=== PATIENT | female | born 1985 | race Caucasian/White ===

== ENCOUNTER 2020-11-16 12:00 | Outpatient (RCR) | payer OTHER, SELFPAY ==
--- NOTE | 2020-10-24 15:18 | PC.NURSE ---
case opened in treatment team
[2020-10-24 15:25] VITALS: BMI 27.9
--- NOTE | 2020-10-24 16:54 | P.HPPSP_ITS ---
HPI Chief Complaint: depression Sources of Information: patient interviewed, chart reviewed and crisis/core team assessment reviewed HPI Narrative: MS. Sarmiento is a 35 year-old woman with hx of MDD, alcohol abuse who was referred by her OP psychotherapist to PHP due to increase depression, anhedonia, anxious mood, hopeless/helpless since last June after her mother unexpectedly. Pt reports her mother was main support and confident. She reports she has been increasing alcohol use since then. She denies drinking daily or weekly but states that there have been at least 6 times when she was had too much alcohol to point of having a black out. She denies suicidal or homicidal ideation. She denies any plan or intent. She reports she has difficulty getting out of bed, and going to work, She reports calling out often. She has been on effexor for some years. She reports hx of anxiety and panic attacks started since she was 13 years-old and feels current medications most effective. However, she has been on higher dose of effexor but thinks it made her more irritable. We discussed adding abilify. Note pt on clonazepam and gabapentin prescribed by OP psychiatrist. Past Psychiatric History: Inpatient: one inpt at [facility] at age 19 for depression. OP: Dr. Irving and Byron Cheema ([place]) Suicide attempts: none Past trials: sertraline, paxil, wellbutrin, seroquel Medical Evaluation Reviewed: Yes [facility] Surgical History (Updated 10/24/20 @ 15:24 by Zoila Westbrook RN) History of appendectomy Family History: mother/father alcohol use Social History: lives with and 7 year-old daughter. 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. Substance History: Alcohol: since age 17, last use 1.5 week cocaine: from [age]. no current use. Pt denies opiates use, LSD, amphetamines Trauma History: none Diagnostics Vital Signs (24Hr): Body Mass Index 27.9 Meds/Allergies Allergies Allergies Allergy/AdvReac Type Severity Reaction Status Date / Time No Known Allergies Allergy Verified 10/24/20 08:48 Mental Status Exam Mental Status Exam Narrative: Appearance: casually groomed, fair hygiene, restless, tearful Behavior: cooperative Psychomotor: no agitation or retardation noted Speech: clear, normal rate/rhythm/volume, spontaneous TP: linear TC: no signs of psychosis, hopeless, depressed, no SI. Mood: depressed Affect: congruent, blunted SI: none HI: none VH/AH: none Delusions: none Insight/judgment: fair x 2. Memory/cog: alert, oriented x 3. grossly intact to conversational testing. Assessment & Plan Assessment & Plan (1) MDD (major depressive disorder), recurrent episode, moderate: Status: Acute Code(s): F33.1 - Major depressive disorder, recurrent, moderate Assessment and Plan: 1. continue effexor 150mg po daily. Continue gabapentin and clonazepam. We did discussed risks, benefits of controlled substances as she continues to work on substance use. 2. Add abilify 2 mg po qhs for mood/ boost effect of antidepressant. (2) Alcohol abuse: Status: Acute Code(s): F10.10 - Alcohol abuse, uncomplicated Certification I certify that partial hospital treatment is medically necessary due to the symptoms and problems resulting from the patient's mental illness and the failure to treat the patient at the partial hospital level of care would likely result in the patient requiring inpatient psychiatric care which could not be prevented at a less intensive level of care. Telehealth Telehealth Location of provider rendering services: practice address Location of patient: address on file Patient Identification confirmed using: Name, : Yes Telehealth method: video Patient verbally consented to treatment: Yes Patient verbally consented to billing insurance company: Yes Patient informed of any privacy concerns related to visit: Yes Time spent with patient (mins): 30
--- NOTE | 2020-10-25 08:23 | PC.ADMIT ---
Patient is a 35 year old female who was referred to the PHP program by her therapist d/t an increase in depression and anxiety sxs. Patient is also grieving the loss of her mother whom she lost unexpectedly in June 2020.. Patient stated her mother was her best friend. Patient stated she is attending [facility] as, Iv'e always had depression and anxiety but my mom suddenly in June and since I'm declining mentally very fast and it is affecting my life, every part . Patient presents with depressed mood anxious affect. Tearful at times when talking about her mother. Patient reports that her appetite fluctuates at times she will not eat the entire day however at night she will become hungry and eat too much. Reports weight gain of 25 lbs in 2 years. Also reports poor sleep. In addition, patient reports she has been sober for 7 years however since her mother passed she has been drinking 2 x a month and she drinks until she cant feel anything. Patient describes herself as a recovering addict and alcoholic. Recommended to patient that in addition to PHP she attend online substance use groups for more support. Medications reconciled with patient and patient's pharmacy. Reports taking medications as prescribed.
--- NOTE | 2020-10-26 16:07 | PC.NURSE ---
I attempted to leave a message with the clients therapist Oswald Cheema. The number that we have to call does not clearly identify Mr Hudson name. I left a message stating that I wanted to leave information about a client who started PHP but did not leave name or any info other than i was calling from [facility]. I requested that Peter call and leave me a number that is confidential and safe for client information.
--- NOTE | 2020-10-26 16:46 | PC.NURSE ---
I spoke with the client to review her tx plan. We discussed goals and aftercare needs. She has outpatient providers. She will explore support groups central for a grief group. We discussed discharge date as 11.08 or
--- NOTE | 2020-10-31 08:05 | PC.NURSE ---
Client called out she wont be in today. She states that she is too tired from working all weekend and she has to work tonight also. She will be in tomorrow
--- NOTE | 2020-11-01 15:48 | HO.PHPPROGNO ---
Subjective Subjective Date of Service: 11/01/20 Reason For Visit: depression Interim History: Pt reports feeling a bit better since Abilify was initiated. Appetite is variable, Denies SI, no plan, no intent- I just don't want to be here. Denies mikhail. Sleep there is no change-latency is intact however pt sleeps during the day and has had DA ~3 times per night for several years. Overall believes she is noticeably better. Discussed using Klonopin for anxiety mgt with significant efficacy, however when she uses it she thinks more about using alcohol and seems to crave more. Talked of the loss of her mom in June and increase in cravings. She has used Klonopin effectively for a few years and discussed with Zoila Westbrook RN this morning a possible Naltrexone trial. Reviewed Naltrexone profile with pt (Edelmira) and discussed trial with a goal to decrease cravings. Discussed interaction potential with Klonopin. She will trial this week. Also discussed concern with nicotine use and breathing issues. Reviewed smoking cessation. Medication Compliance: Yes Side effects from medications: Yes (?Klonopin increasing cravings) Attending Groups: Yes Review of Systems Review of Systems Yes all other systems are reviewed and are negative (denies) Psychiatric: Reports abnormal sleep pattern, Reports anxiety, Reports change in appetite, Reports depression and Reports suicidal ideation (denies SI but states she wishes she were not here) Mental Status Exam Mental Status Exam Patient Orientation: Person, Place, Time and Situation Level of Consciousness: Alert Patient Behavior: Appropriate and Talkative Mood Description: Anxious Affect Description: Constricted Patient Cognition Impaired: No Ability to Follow Directions: Good Speech Pattern: Spontaneous Speech Memory Description: Intact Hallucinations: None Delusions: Not Present Thought Process: Intact Thought Content: positive for Intact Depressive Symptoms: Increased Anxiety and Difficulty Sleeping Judgement: Good Diagnostics Vital Signs (24Hr): Body Mass Index 27.9 Assessment & Plan Assessment & Plan (1) MDD (major depressive disorder), recurrent episode, moderate: Status: Acute Code(s): F33.1 - Major depressive disorder, recurrent, moderate (2) Alcohol abuse: Status: Acute Code(s): F10.10 - Alcohol abuse, uncomplicated Assessment and Plan: -Naltrexone 50 mg HS trial. Certification I certify that partial hospital treatment is medically necessary due to the symptoms and problems resulting from the patient's mental illness and the failure to treat the patient at the partial hospital level of care would likely result in the patient requiring inpatient psychiatric care which could not be prevented at a less intensive level of care. Greater than 50% of the session was spent on counseling and/or coordination of care Discharge Plan Discharge Attending provider: Casa [facility] Medications: New aripiprazole [Abilify] 2 mg tablet 2 mg PO BEDTIME Qty: 14 RF: 0 naltrexone 50 mg tablet 50 mg PO DAILY Qty: 10 RF: 0 No Action clonazepam 0.5 mg Tablet 0.5 mg PO TID PRN (Reason: Anxiety) RF: 0 venlafaxine 150 mg Capsule,Extended Release 24hr 150 mg PO DAILY RF: 0 gabapentin 300 mg Capsule 300 mg PO TID RF: 0 Telehealth Telehealth Location of provider rendering services: practice address Location of patient: address on file Patient Identification confirmed using: Name, : Yes Telehealth method: voice only Patient verbally consented to treatment: Yes Patient verbally consented to billing insurance company: Yes Patient informed of any privacy concerns related to visit: Yes Time spent with patient (mins): 15
--- NOTE | 2020-11-10 10:54 | PC.NURSE ---
The client called and left a message that she overslept. I called her back and she explained that she is very tired because she worked last night and didn't hear her alarm. She is off tomorrow and will be back on Saturday. She is going to come for half days ( starting IOP) so she can be here every day next week.
--- NOTE | 2020-11-14 13:17 | PM.EVENT ---
Event Note Date of Service: 11/14/20 Event Note: Pt, currently in PHP program, had a scheduled medication review appt at 1pm which she did not attend via teleconference.
--- NOTE | 2020-11-15 13:18 | P.EN_ITS ---
Event Note Date of Service: 11/15/20 Event Note: Pt scheduled for [facility] today [facility] Pt did not attend this appointment.
--- NOTE | 2020-11-15 13:18 | PM.EVENT ---
Event Note Date of Service: 11/15/20 Event Note: Pt scheduled for PHP medication appointment today 1pm via telehealth. Pt did not attend this appointment.
--- NOTE | 2020-11-15 13:25 | PC.NURSE ---
I called and left a message with Lauren to call RE ? didn't attend 3rd group and remind of 1:00 appointment
--- NOTE | 2020-11-17 09:25 | PC.NURSE ---
Client not in this morning. I called and left message to call and reminded her she couldn't attend without calling if late.
--- NOTE | 2020-11-17 11:07 | PC.NURSE ---
Padmini spoke with Lauren and she reported that she didn't come in because her daughter was having difficulty with school. We discussed her progress here and she reports difficuly staying sober. We agreed that she will be discharged from [facility] and I will make a referral for her to [facility]. She will call her providers today to make appointments.
--- NOTE | 2020-11-17 11:11 | PC.NURSE ---
I called [facility] and made an appointment for an intake for their substance IOP program. The intake is for November 28 at 1pm with Radha. It will be a telehealth appointment and they will call Lauren at that time. I called and informed Lauren of the appointment.
--- NOTE | 2020-11-17 11:45 | PC.NURSE ---
I called and left a message with client's therapist Oswald Cheema re client dc from [facility] and referral made to [facility].
== END 2020-11-16 23:55 | disposition home or self-care (01) ==
LOC: HO.PHPA 12:00
PROVIDERS: Visit Provider Psychiatry & Neurology Psychiatry
DX: F33.1 Major depressive disorder, recurrent, moderate (principal); F10.10 Alcohol abuse, uncomplicated; Z79.899 Other long term (current) drug therapy
CPT/HCPCS: 90791; 90853

== ENCOUNTER 2021-08-23 17:44 | Emergency (ER) | payer OTHER, SELFPAY | END 2021-08-23 20:04 | disposition left against medical advice (07) | PROVIDERS: Emergency Provider Emergency Medicine | DX: R11.10 Vomiting, unspecified (principal); F10.10 Alcohol abuse, uncomplicated; F33.1 Major depressive disorder, recurrent, moderate ==

== ENCOUNTER 2022-02-12 08:45 | Outpatient (RCR) | payer OTHER, SELFPAY ==
[2022-01-24 12:20] VITALS: BMI 32.1
--- NOTE | 2022-01-24 13:33 | PC.ADMIT ---
Patient is a 36 year old female who was advised by her therapist to attend [facility] d/t increase in depression and anxiety. Patient reports passive SI however denied plan or intent to harm or kill herself. Patient reports more intense cravings for ETOH however reports she has been sober since last summer. Patient attended [facility] 10/2020 and was on Naltrexone at that time. Patient interested in the [facility] and wants staff to make an appointment. Per records patients mother two years ago and less than a year ago she left her in addition to having a miscarriage around that time. Patient is currently taking a leave of absence from work d/t symptoms and to work on her mental health. Patient reports stress eating and has gained 40 lbs within the last 6 months. Patient spending time in bed napping during the day and reports poor sleep at night waking up 3 x on average during the night. Patient is alert and oriented x4. calm and cooperative. Presented with depressed mood and affect. Medication reconciliation done with patient and patient's pharmacy. Patient reports she is taking her medications as prescribed. Patient did state she has not started new medication Sertraline as she wanted to talk to [facility] prescriber first. Reviewed with [facility] prescriber Irma Linton NP patient recent history of chest pain-not present currently. Patient stated she was told it could be GERD. Patient has a f/u appointment on Saturday01/29/22. Patient was taken off Cymbalta and is on Seroquel.
--- NOTE | 2022-01-24 15:11 | HO.PS.ADMBH ---
[facility] Date of Service: 01/24/22 Chief Complaint: major depressive d/o Sources of Information: patient interviewed, chart reviewed and crisis/core team assessment reviewed [facility] Guardianship: No Medical Problems Affecting Mental Status: No Narrative: Patient is a 36-year-old female, referred to [facility] by therapist. History of major depressive disorder, alcohol use disorder. Has been experiencing increased symptoms of depression, chronic anxiety, feeling overwhelmed, irritability, passive SI, thoughts of relapse. She states ?I am always in a constant state of panic. But at the same time I am so tired, depressed ?. Denies any intent or plan to complete a suicide, but states I just do not want to be alive anymore . Describes precipitating stressors as her mother passing away in June 2020 suddenly at age 59, and her last year. She states that her symptoms have been steadily worsening over the past 6 months. She does describe difficulty with impulse control, especially compulsive eating. She reports a weight gain of 40 lb within this past 6 months. She has also impulsively spent money. But she states this is sporadic, and will be followed with close financial monitoring afterwards. No other risk-taking type behaviors reported. 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 She has been working with a psychiatrist for the past 4 months, and her therapist for the past 2 months. First sought treatment with therapy at age 13, due to symptoms of depression. Was in detox 11 years ago. She describe frequent mood swings. When discussing symptoms of bipolar disorder, she states that she has spoken to providers about this in the past, but has not been diagnosed with bipolar disorder, due to never experiencing symptoms for days at a time, but rather ?hourly ?. She is looking forward to participating in groups while here, in order to help learn and practice coping skills. Also willing to trial medication changes. Past Psychiatric History: Inpatient: one inpt at [facility] at age 19 for depression. PHP: [facility] 10/2020. [facility]: 10/2020 OP: Dr. Cynthia Reyez [facility] (past 4 months), and Byron Cheema ([place]) Therapist: Mary Jo Younger [facility], [facility] (2 months). Suicide attempts: none Past trials: sertraline, paxil, wellbutrin, seroquel, Effexor, Cymbalta. Medical Evaluation Reviewed: Yes [facility] Medical History History of anemia History of chest pain Surgical History History of appendectomy Family History: mother/father alcohol use Social History: Raised by mother, has older stepbrother. Father when she was 2 years old. Met developmental milestones as expected. Graduated high school, attended 2 years of college. 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 Currently on leave from work. / x1 year. Has 8-year-old daughter. Substance History: Alcohol use disorder. Detox 11 years ago. Relapsed briefly summer. Currently sober. Trauma History: Describes sudden loss of mother 1 1/2 years ago as traumatic. Reports missing ?blocks of time from childhood. Diagnostics Vital Signs (24Hr): BMI result Body Mass Index 32.1 Meds/Allergies Meds Home Medications Medication Instructions Recorded Confirmed Type clonazepam 0.5 mg tablet 0.5 mg PO BID PRN 01/24/22 01/24/22 History quetiapine 100 mg tablet (Seroquel) 100 - 200 mg PO BEDTIME 01/24/22 01/24/22 History Allergies Allergies Allergy/AdvReac Type Severity Reaction Status Date / Time No Known Allergies Allergy Verified 10/24/20 08:48 Mental Status Exam Mental Status Exam Narrative: Well-developed, overweight female, in NAD. Passive SI. No perceptual disturbances noted. No evidence of intoxication/withdrawals noted. No abnormal movements noted. Alert, attentive and cooperative with interview. Patient Appearance: Appropriate Patient Orientation: Person, Place, Time and Situation Level of Consciousness: Appropriate Patient Behavior: Appropriate, Cooperative and Good Eye Contact Mood Description: Depressed, Anxious and Labile (Irritable, tearful at times during interview.) Affect Description: Depressed, Anxious and Labile Patient Cognition Impaired: No Ability to Follow Directions: Good Speech Pattern: Clear, Appropriate and Coherent Memory Description: Intact Hallucinations: None Delusions: Not Present Thought Process: Intact Thought Content: positive for Intact and positive for Suicidal Ideation (passive, no intent/plan) Depressive Symptoms: Increased Anxiety, Difficulty Sleeping, Changes in Appetite, Loss of Int. in Activity, Significant Weight Gain (40 pounds in past 6 months), Hopelessness, Isolating-Friends/Family, Feelings of Guilt, Increased Fatigue, Thoughts of /Suicide, Low Self Esteem, Loss of Energy and Difficulty Concentrating Judgement: Fair Telehealth Telehealth Location of provider rendering services: practice address Location of patient: address on file Patient Identification confirmed using: Name, : Yes Telehealth method: video Patient verbally consented to treatment: Yes Patient verbally consented to billing insurance company: Yes Patient informed of any privacy concerns related to visit: Yes Minutes spent on Phone/Video with Pt.: 45 Assessment & Plan Assessment & Plan (1) MDD (major depressive disorder), recurrent severe, without psychosis: Status: Acute Code(s): F33.2 - Major depressive disorder, recurrent severe without psychotic features Assessment and Plan: Patient presents with worsening symptoms of anxiety and depression over the past 6 months. Reports current medications are not working well. Was prescribed sertraline yesterday, did not pick it up. States this is because she took it in the past, and did not find it helpful. She would like medication that can also help with binge eating. We discussed trying fluoxetine. Was explained that it is an SSRI, similar to other medications she has taken in the past. She is willing at this time to try it. She states that she believes she has some type of underlying mood disorder, although she knows she does not meet criteria of bipolar disorder, as she has explored this with other providers in the past. She does experience mood lability, agitation, feelings of panic and rate age. She states that she becomes rageful over tiny things, and then will start crying, which causes severe anxiety. She is currently taking Seroquel 100 mg at bedtime. She states that this helps her fall asleep, but does not help her stay asleep during the night. She states that when she does get up she overeats. She says that it also makes her feel ?logey ?in the mornings. She states ?I am so tired, depressed. My moods are just off the chart ?. She then states that her body is exhausted, but that her mind will not stop going. We discussed several medication options. One was to trial the sertraline as prescribed by her outpatient provider. She is not interested in this at this time. Discussed trial of Lexapro or Prozac. She would like to try prozac at this time. We also discussed adding a mood stabilizer such as Lamictal, which may also help with depression. She states that she will read about this medication, and will consider. (2) Generalized anxiety disorder: Status: Acute Code(s): F41.1 - Generalized anxiety disorder Assessment and Plan: Currently taking Klonopin 0.5 b.i.d. p.r.n.. Tearful, states that this use to help her but it is not helping right now. We discussed adding a p.r.n. Seroquel, she would like to hold off on doing this, as she is fearful it will make her to tired or gain more weight. (3) Alcohol use disorder, severe, in early remission: Status: Acute Code(s): F10.21 - Alcohol dependence, in remission Assessment and Plan: Patient had been drinking last year, had stopped. Reports that she briefly drink last summer, but then realized it was a mistake. Has been sober since last summer. Discussed support networks, such as 12 step programs, other types of recovery programs. Denies any cravings or desire to drink at this time. Plan 1. Continue with current [facility] plan of care. 2. Discontinue sertraline. 3. Start fluoxetine 20 mg daily. 4. Follow-up as per protocol. Patient educated on: diagnosis, medication risk/benefits, substance abuse and therapeutic strategies Informed Consent: understands Reason for continued partial hosp. stay Substantial Risk for: harm to self, inability to function, rapid decompensation and med/psych decompensation Certification I certify that partial hospital treatment is medically necessary due to the symptoms and problems resulting from the patient's mental illness and the failure to treat the patient at the partial hospital level of care would likely result in the patient requiring inpatient psychiatric care which could not be prevented at a less intensive level of care.
--- NOTE | 2022-01-25 16:45 | PC.NURSE ---
Case opened in treatment team.
--- NOTE | 2022-01-26 16:17 | HO.PHPPROGNO ---
Subjective Subjective Date of Service: 01/26/22 Reason For Visit: major depressive d/o Medical Problems Affecting Mental Status: No Interim History: Describes mood as ?very anxious, I feel very scared, and I do not know why ?. Denies any thought of harm to self or others, reports that she feels safe. Started fluoxetine this morning. Medication Compliance: Yes Side effects from medications: No Attending Groups: Yes Review of Systems Acute medical concerns: No Medical Review of Systems: unchanged Review of Systems Review of Systems Yes all other systems are reviewed and are negative Constitutional: Reports no additional constitutional complaints Mental Status Exam Mental Status Exam Narrative: NAD. Fully attentive during encounter. Denies SI/HI. No perceptual disturbances observed or reported. Patient Appearance: Appropriate Patient Orientation: Person, Place, Time and Situation Level of Consciousness: Appropriate Patient Behavior: Appropriate, Cooperative and Good Eye Contact Mood Description: Depressed and Anxious Affect Description: Depressed and Anxious Patient Cognition Impaired: No Ability to Follow Directions: Good Speech Pattern: Clear, Appropriate and Coherent Memory Description: Intact Hallucinations: None Delusions: Not Present Thought Process: Intact Thought Content: positive for Intact Depressive Symptoms: Increased Anxiety, Difficulty Sleeping, Changes in Appetite, Loss of Int. in Activity, Significant Weight Gain (40 pounds in past 6 months), Isolating-Friends/Family, Feelings of Guilt, Increased Fatigue, Low Self Esteem, Loss of Energy and Difficulty Concentrating Judgement: Fair Diagnostics Vital Signs (24Hr): BMI result Body Mass Index 32.1 Assessment & Plan Assessment & Plan (1) MDD (major depressive disorder), recurrent severe, without psychosis: Status: Acute Code(s): F33.2 - Major depressive disorder, recurrent severe without psychotic features Assessment and Plan: Continues with dysphoric mood. Started fluoxetine this morning. States that continues with anxiety, which overwhelms her at times. Denies SI/HI, reports that she feels safe. Discussed medication Lamictal, as we had discussed during last encounter. She states that she has read about the medication and does not wish to started at this time. She states that she does not believe she has an underlying mood disorder such as bipolar, but that she really thinks it is more combination of anxiety and depression at this time. Describes an incident yesterday where she went to store and bought her daughter several dresses. She states that afterwards she felt ?an intense high for about half an hour, and then adjust dropped off ?. She says that she feels overwhelmed at times, with physical symptoms of anxiety. We discussed other medications. She is not interested in adding p.r.n. quetiapine, as it makes her feel too tired during the day. She took gabapentin in the past, but does not recall much about it. She states that she did not take it for anxiety or mood in any way. Discussed a trial of clonidine. Education provided regarding the medication, including risks and benefits, side effects. She stated that she is willing to try this medication at this time. (2) Generalized anxiety disorder: Status: Acute Code(s): F41.1 - Generalized anxiety disorder Assessment and Plan: Is hopeful that the fluoxetine will help with anxiety symptoms. She is aware that it takes weeks to to truly take effect. She is willing to trial clonidine in the interim, to see if it helps with the physical symptoms she experiences with anxiety. (3) Alcohol use disorder, severe, in early remission: Status: Acute Code(s): F10.21 - Alcohol dependence, in remission Assessment and Plan: Continues to remain abstinent from alcohol at this time. Plan 1. Continue with current [facility] plan of care. 2. Start clonidine 0.1 mg daily. 3. Continue with other medication as prescribed. 4. Follow-up as per protocol. Patient educated on: diagnosis, medication risk/benefits, substance abuse and therapeutic strategies Informed Consent: understands Certification I certify that partial hospital treatment is medically necessary due to the symptoms and problems resulting from the patient's mental illness and the failure to treat the patient at the partial hospital level of care would likely result in the patient requiring inpatient psychiatric care which could not be prevented at a less intensive level of care. I spent minutes with the patient and/or on the patient floor today, greater than?50% of which was spent counseling/coordinating care. Discharge Plan Discharge Attending provider: Boyd An Medications: New fluoxetine [Prozac] 20 mg capsule 20 mg PO DAILY 14 Days Qty: 14 0RF clonidine HCl 0.1 mg tablet 0.1 mg PO DAILY 7 Days Qty: 7 0RF Discontinued sertraline 25 mg Tablet 25 mg PO DAILY 0RF Label Comments: New medication, patient has not started, wants to talk to prescriber at [facility]. No Action clonazepam 0.5 mg Tablet 0.5 mg PO BID PRN (Reason: Anxiety) 0RF quetiapine [Seroquel] 100 mg Tablet 100 - 200 mg PO BEDTIME 0RF Telehealth Telehealth Location of provider rendering services: practice address Location of patient: address on file Patient Identification confirmed using: Name, : Yes Telehealth method: video Patient verbally consented to treatment: Yes Patient verbally consented to billing insurance company: Yes Patient informed of any privacy concerns related to visit: Yes Minutes spent on Phone/Video with Pt.: 15
--- NOTE | 2022-01-26 16:23 | PC.NURSE ---
I called pt and spoke to her. She reported feeling very overwhelmed and her tone was short and a bit guarded. She reported a sense of despair and we discused criteria and possible need for inpatient LOC. Pt is having SI but no plan or intent. She said she will call crisis if thoughts get more severe, if she wants to talk, or if she feels unsafe. She said I have no shame about going inpatient if I need to . She reported craving for ETOH with no intent to use and [id number] feeling confident that she wont. We reviewed treatment plan and spoke about aftercare but did not yet set a tentative end date, as pt seemed too overwhelmed. We agreed to revisit this on another day.
--- NOTE | 2022-01-29 12:44 | PC.NURSE ---
Pt called after the second group stating she is leaving groups for the day due to having an extreme stomach ache. She said she is safe emotionally.
--- NOTE | 2022-01-30 11:59 | PC.NURSE ---
Set up appointment for Lauren at [facility] for medication assisted treatment for ETOH cravings on 01/26/22 however patient stated she was unable to make that appointment thus I cancelled the appointment. Patient told me her availability. Scheduled patient on 02/06/22 however patient stated someone from the [facility] called her and discussed treatment however she decided to hold off for now as she is able to manage cravings and has been going to meetings.
--- NOTE | 2022-01-31 13:47 | HO.PHPPROGNO ---
Subjective Subjective Date of Service: 01/31/22 Reason For Visit: major depressive d/o Medical Problems Affecting Mental Status: No Interim History: Describes mood as I'm okay, kind of blah day . Continues with dysphoric mood, anxiety. Tolerating Prozac well, no side effects, but has not yet noticed any improvement regarding symptoms. No thoughts of harm to self or others, no safety concerns. Reports overeating with Seroquel, would like to change medications. Medication Compliance: Yes Side effects from medications: Yes (overeating with seroquel) Attending Groups: Yes Review of Systems Acute medical concerns: No Medical Review of Systems: unchanged Review of Systems Review of Systems Yes all other systems are reviewed and are negative Constitutional: Reports no additional constitutional complaints Mental Status Exam Mental Status Exam Narrative: NAD. Fully attentive during encounter. Denies SI/HI. No perceptual disturbances observed or reported. Patient Appearance: Appropriate Patient Orientation: Person, Place, Time and Situation Level of Consciousness: Appropriate Patient Behavior: Appropriate, Cooperative and Good Eye Contact Mood Description: Depressed and Anxious Affect Description: Depressed and Anxious Patient Cognition Impaired: No Ability to Follow Directions: Good Speech Pattern: Clear, Appropriate and Coherent Memory Description: Intact Hallucinations: None Delusions: Not Present Thought Process: Intact Thought Content: positive for Intact Depressive Symptoms: Increased Anxiety, Difficulty Sleeping, Changes in Appetite, Loss of Int. in Activity, Significant Weight Gain, Increased Fatigue, Low Self Esteem and Loss of Energy Judgement: Fair Diagnostics Vital Signs (24Hr): BMI result Body Mass Index 32.1 Assessment & Plan Assessment & Plan (1) MDD (major depressive disorder), recurrent severe, without psychosis: Status: Acute Code(s): F33.2 - Major depressive disorder, recurrent severe without psychotic features Assessment and Plan: Continues with dysphoric mood. No SI, no safety concerns. Tolerating Prozac well, has not yet noticed any effectiveness. We discussed medication, educated on expected time needed for medication to be effective. She stated she understood. She has been taking Seroquel at bedtime, her provider had informed her at works for sleep and mood stabilization. She reports that she is getting up in the middle of the night and eating, and wishes to stop this medication. We discussed adding Lamictal. Medication discussed in detail, including risks, benefits, side effects, etc.. She is willing to try the medication at this time. (2) Generalized anxiety disorder: Status: Acute Code(s): F41.1 - Generalized anxiety disorder Assessment and Plan: Patient continues with anxiety/panic. We discussed clonidine. She has not yet picked it up from pharmacy. We discussed adding it instead of once daily to twice daily p.r.n., as it can help at night and also can be used during day for episodes of severe anxiety/panic. Discussed risks and benefits,side effects, etc. she is willing to try this at this time. (3) Alcohol use disorder, severe, in early remission: Status: Acute Code(s): F10.21 - Alcohol dependence, in remission Assessment and Plan: Continues to abstain from alcohol, denies any cravings at this time. Plan 1. Continue with current [facility] plan of care. 2. Discontinue Seroquel. 3. Start clonidine 0.1 mg b.i.d. p.r.n. for anxiety, panic. 4. Start lamotrigine 25 mg x 14 days, then increase dose to 50 mg x 14 days., with plan to start 100 mg in 28 days. Patient educated on: diagnosis, medication risk/benefits, substance abuse and therapeutic strategies Informed Consent: understands Reason for contiued partial hosp. stay Substantial Risk for: inability to function, rapid decompensation and med/psych decompensation Certification I certify that partial hospital treatment is medically necessary due to the symptoms and problems resulting from the patient's mental illness and the failure to treat the patient at the partial hospital level of care would likely result in the patient requiring inpatient psychiatric care which could not be prevented at a less intensive level of care. I spent minutes with the patient and/or on the patient floor today, greater than?50% of which was spent counseling/coordinating care. Discharge Plan Discharge Attending provider: Boyd An Medications: New fluoxetine [Prozac] 20 mg capsule 20 mg PO DAILY 14 Days Qty: 14 0RF clonidine HCl 0.1 mg tablet 0.1 mg PO BID PRN (Reason: anxiety, panic) 7 Days Qty: 14 0RF lamotrigine [Lamictal] 25 mg tablet See Rx Instructions .ROUTE .COMPLEX 28 Days Qty: 42 0RF Rx Instructions: Take one tab (25mg) for 14 days, then take 2 tabs (50mg) for 14 days. Discontinued quetiapine [Seroquel] 100 mg Tablet 100 - 200 mg PO BEDTIME sertraline 25 mg Tablet 25 mg PO DAILY Label Comments: New medication, patient has not started, wants to talk to prescriber at [facility]. No Action clonazepam 0.5 mg Tablet 0.5 mg PO BID PRN (Reason: Anxiety) Telehealth Telehealth Location of provider rendering services: practice address Location of patient: address on file Patient Identification confirmed using: Name, : Yes Telehealth method: video Patient verbally consented to treatment: Yes Patient verbally consented to billing insurance company: Yes Patient informed of any privacy concerns related to visit: Yes Minutes spent on Phone/Video with Pt.: 15
--- NOTE | 2022-01-31 16:21 | PC.NURSE ---
I called and LM for pt. Asked her to pld call re: schedule, etc.
--- NOTE | 2022-02-05 14:38 | PC.NURSE ---
Patient called and stated the palms of her hands are itchy and asked if it was from the Lamictal. Patient stated no rash or blisters in the area. Reviewed with PHP prescriber Priscilla Hernandez NP who advise patient to try it for a few more days and if she sees a rash or blisters to stop the medication. I advised the patient of the aforementioned information.
--- NOTE | 2022-02-06 15:50 | HO.PHPPROGNO ---
Subjective Subjective Date of Service: 02/06/22 Reason For Visit: major depressive d/o Medical Problems Affecting Mental Status: No Interim History: Describes mood as ?not great?. Experiencing increased anxiety. Passive SI, no intent/plan. Medication Compliance: Yes Side effects from medications: Yes (Has had itchy hands, not sure if it is related to Lamictal. Relieved with ) Attending Groups: Yes Review of Systems Acute medical concerns: No Medical Review of Systems: unchanged Review of Systems Skin/Breast: Reports pruritus (Describes itchy palms of hands, relieved with OTC Benadryl) Mental Status Exam Mental Status Exam Narrative: NAD. Fully attentive during encounter. Passive SI, no intent or plan. No HI/AH/VH. Patient Appearance: Appropriate Patient Orientation: Person, Place, Time and Situation Level of Consciousness: Appropriate Patient Behavior: Appropriate, Cooperative and Good Eye Contact Mood Description: Depressed and Anxious Affect Description: Depressed and Anxious Patient Cognition Impaired: No Ability to Follow Directions: Good Speech Pattern: Clear, Appropriate and Coherent Memory Description: Intact Hallucinations: None Delusions: Not Present Thought Process: Intact Thought Content: positive for Intact and positive for Suicidal Ideation (Passive, no intent or plan.) Depressive Symptoms: Increased Anxiety, Changes in Appetite, Loss of Int. in Activity, Increased Fatigue and Thoughts of /Suicide Judgement: Fair Diagnostics Vital Signs (24Hr): BMI result Body Mass Index 32.1 Assessment & Plan Assessment & Plan (1) MDD (major depressive disorder), recurrent severe, without psychosis: Status: Acute Code(s): F33.2 - Major depressive disorder, recurrent severe without psychotic features Assessment and Plan: Reports passive SI, increased anxiety and depression. She states that she has no intent or plan to harm herself in any way, and that she feels safe. She was agreeable to calling crisis if this changes in any way. Reports anxiety as a sense of impending doom, with fighter flight mode, states it is getting worse. States she is afraid to leave her house. Reviewed current medication including fluoxetine, possibly be activating. She states she does not believe is is side effects from the fluoxetine, as she has felt this way prior to taking the medication. Reports the clonidine is helpful regarding going to sleep, but that it is too sedating during daytime. Has had itchy palms of hands since starting Lamictal, reports using OTC Benadryl with positive affect. We reviewed symptoms such as rash. She does not have a rash anywhere visible. She was instructed to stop taking the Lamictal if the itchiness continues, or rash develops. We discussed various medication options. She is agreeable to a short-term increase in Klonopin from 0.5 b.i.d. p.r.n. to 0.5 t.i.d. p.r.n., while awaiting effects of fluoxetine. She plans to continue fluoxetine as prescribed. We discussed adding BuSpar, she is agreeable to this. (2) Generalized anxiety disorder: Status: Acute Code(s): F41.1 - Generalized anxiety disorder (3) Alcohol use disorder, severe, in early remission: Status: Acute Code(s): F10.21 - Alcohol dependence, in remission Assessment and Plan: Remains in remission, no concerns at this time. Plan 1. Continue with current [facility] plan of care. 2. Start BuSpar 15 mg b.i.d.. 3. Increase Klonopin to 0.5 mg t.i.d. p.r.n. for anxiety. 4. Follow-up as per protocol. Patient educated on: diagnosis, medication risk/benefits, substance abuse and therapeutic strategies Informed Consent: understands Reason for contiued partial hosp. stay Substantial Risk for: harm to self, inability to function, rapid decompensation and med/psych decompensation Certification I certify that partial hospital treatment is medically necessary due to the symptoms and problems resulting from the patient's mental illness and the failure to treat the patient at the partial hospital level of care would likely result in the patient requiring inpatient psychiatric care which could not be prevented at a less intensive level of care. I spent minutes with the patient and/or on the patient floor today, greater than?50% of which was spent counseling/coordinating care. Discharge Plan Discharge Attending provider: Boyd An Medications: New clonidine HCl 0.1 mg tablet 0.1 mg PO BID PRN (Reason: anxiety, panic) 7 Days Qty: 14 0RF lamotrigine [Lamictal] 25 mg tablet See Rx Instructions .ROUTE .COMPLEX 28 Days Qty: 42 0RF Rx Instructions: Take one tab (25mg) for 14 days, then take 2 tabs (50mg) for 14 days. fluoxetine 20 mg tablet 20 mg PO DAILY 30 Days Qty: 30 0RF buspirone 15 mg tablet 15 mg PO BID 30 Days Qty: 60 0RF clonazepam 0.5 mg tablet 0.5 mg PO TID PRN (Reason: anxiety) Qty: 90 0RF Discontinued clonazepam 0.5 mg Tablet 0.5 mg PO BID PRN (Reason: Anxiety) quetiapine [Seroquel] 100 mg Tablet 100 - 200 mg PO BEDTIME sertraline 25 mg Tablet 25 mg PO DAILY Label Comments: New medication, patient has not started, wants to talk to prescriber at [facility]. Telehealth Telehealth Location of provider rendering services: practice address Location of patient: address on file Patient Identification confirmed using: Name, : Yes Telehealth method: video Patient verbally consented to treatment: Yes Patient verbally consented to billing insurance company: Yes Patient informed of any privacy concerns related to visit: Yes Minutes spent on Phone/Video with Pt.: 15
--- NOTE | 2022-02-06 15:58 | PC.NURSE ---
Pt called and I spoke with her. She asked me for a letter for her employer stating she is in treatment and I got her permission for a release of information for this. I then completed and emailed this letter as she requested.
--- NOTE | 2022-02-09 14:20 | PC.NURSE ---
I called and left a message for pt after she was struggling in groups, expressing passive SI and hopelessness. I asked her to pls call and reinforced that we can extend treatment stay if she will agree to do so.
--- NOTE | 2022-02-12 14:42 | P.PNPSP_ITS ---
Subjective Subjective Date of Service: 02/12/22 Reason For Visit: major depressive d/o Medical Problems Affecting Mental Status: No Interim History: Continues with depressed mood, although noticing some improvement. No SI/HI, no safety concerns. Medication Compliance: Yes Side effects from medications: No Attending Groups: Yes Review of Systems Acute medical concerns: No Medical Review of Systems: unchanged Review of Systems Review of Systems Yes all other systems are reviewed and are negative Constitutional: Reports no additional constitutional complaints Mental Status Exam Mental Status Exam Narrative: NAD. Fully attentive during encounter. No SI/HI, no safety concerns. Patient Appearance: Appropriate Patient Orientation: Person, Place, Time and Situation Level of Consciousness: Appropriate Patient Behavior: Appropriate, Cooperative and Good Eye Contact Mood Description: Depressed (less depressed, but still present. ) and Anxious Affect Description: Appropriate Patient Cognition Impaired: No Ability to Follow Directions: Good Speech Pattern: Clear, Appropriate and Coherent Memory Description: Intact Hallucinations: None Delusions: Not Present Thought Process: Intact Thought Content: positive for Intact Depressive Symptoms: Increased Anxiety, Changes in Appetite and Thoughts of /Suicide Judgement: Good Diagnostics Vital Signs (24Hr): BMI result Body Mass Index 32.1 Assessment & Plan Assessment & Plan (1) MDD (major depressive disorder), recurrent severe, without psychosis: Status: Acute Code(s): F33.2 - Major depressive disorder, recurrent severe without psychotic features Assessment and Plan: Continues with some depression and anxiety, although reports noticing some improvement. Discussed medications in detail. Reports the clonidine has been helping her sleep. Continues with Lamictal, no rash present. Plan is after 2 weeks of Lamictal at 50 mg, to proceed to Lamictal 100 mg daily. Continues with fluoxetine 20 mg at this time. She did voice some frustration over waiting for a few weeks for medications to take full effect, but she does report some improvement overall. Returning to work Saturday. No SI/HI, no safety concerns at this time. (2) Generalized anxiety disorder: Status: Acute Code(s): F41.1 - Generalized anxiety disorder (3) Alcohol use disorder, severe, in early remission: Status: Acute Code(s): F10.21 - Alcohol dependence, in remission Assessment and Plan: Continues to remain abstinent. We discussed local 12 step meetings. She has found a woman's group that she has found helpful close to her home. Plan 1. Continue with current medications as prescribed. Thirty day script for Lamictal 100 mg sent, clonidine 0.1 b.i.d. p.r.n., 30 day supply sent. 2. Patient appears stable for discharge from [facility] at this time. Plan is to follow up with outpatient providers going forward. Patient educated on: diagnosis, medication risk/benefits, substance abuse and therapeutic strategies Informed Consent: understands Reason for contiued partial hosp. stay Substantial Risk for: stable for discharge Certification I certify that partial hospital treatment is medically necessary due to the symptoms and problems resulting from the patient's mental illness and the failure to treat the patient at the partial hospital level of care would likely result in the patient requiring inpatient psychiatric care which could not be prevented at a less intensive level of care. I spent minutes with the patient and/or on the patient floor today, greater than?50% of which was spent counseling/coordinating care. Discharge Plan Discharge Attending provider: Boyd An Medications: New lamotrigine [Lamictal] 25 mg tablet See Rx Instructions .ROUTE .COMPLEX 28 Days Qty: 42 0RF Rx Instructions: Take one tab (25mg) for 14 days, then take 2 tabs (50mg) for 14 days. buspirone 15 mg tablet 15 mg PO BID 30 Days Qty: 60 0RF clonazepam 0.5 mg tablet 0.5 mg PO TID PRN (Reason: anxiety) Qty: 90 0RF fluoxetine 20 mg capsule 20 mg PO DAILY 30 Days Qty: 30 0RF lamotrigine [Lamictal] 100 mg tablet 100 mg PO DAILY Qty: 30 0RF clonidine HCl 0.1 mg tablet 0.1 mg PO BID PRN (Reason: anxiety) 30 Days Qty: 60 0RF Discontinued clonazepam 0.5 mg Tablet 0.5 mg PO BID PRN (Reason: Anxiety) quetiapine [Seroquel] 100 mg Tablet 100 - 200 mg PO BEDTIME sertraline 25 mg Tablet 25 mg PO DAILY Label Comments: New medication, patient has not started, wants to talk to prescriber at [facility]. Stand Alone Forms: Patient Portal Discharge page Telehealth Telehealth Location of provider rendering services: practice address Location of patient: address on file Patient Identification confirmed using: Name, : Yes Telehealth method: video Patient verbally consented to billing insurance company: Yes Patient informed of any privacy concerns related to visit: Yes Minutes spent on Phone/Video with Pt.: 15
--- NOTE | 2022-02-12 16:32 | PC.NURSE ---
Patient discharged from [facility] today 02/12/22. Discharge routine. Patient reports she is ready for discharge, denies SI and HI. Discharge medications reviewed, patient states good undurstanding of use and schedule. Patient has completed 13 days at [facility]. Discharge medication list faxed to out patient providers.
--- NOTE | 2022-02-12 16:39 | PC.NURSE ---
I called and LM for pt's therapist, Mary Jo Younger, SAMMI at [facility]. I informed her of pt's discharge from [facility] today.
== END 2022-02-12 23:59 | disposition home or self-care (01) ==
LOC: HO.PHPA 08:45
PROVIDERS: Visit Provider Psychiatry & Neurology Psychiatry
DX: F33.2 Major depressive disorder, recurrent severe without psychotic features (principal); F41.1 Generalized anxiety disorder; F10.21 Alcohol dependence, in remission; Z79.899 Other long term (current) drug therapy
CPT/HCPCS: 90853

== ENCOUNTER 2022-07-25 02:50 | Emergency (ER) | payer OTHER, SELFPAY ==
[2022-07-25] VITALS (11 sets, daily range): BP systolic 86–141; BP diastolic 47–83; PULSE 54–78; RESP 12–17; TEMP 36.8; O2SAT 97–99
--- NOTE | 2022-07-25 | ECG_ITS ---
Test Reason : OVERDOSE Blood Pressure : / mmHG Vent. Rate : 087 BPM Atrial Rate : 087 BPM P-R Int : 148 ms QRS Dur : 058 ms QT Int : 346 ms P-R-T Axes : 053 046 053 degrees QTc Int : 416 ms Normal sinus rhythm Normal ECG No previous ECGs available Referred By: Brian Hickman Electronically Signed By:Dariusz Joel
--- NOTE | 2022-07-25 04:27 | PC.NURSE ---
Administered midodrine 10 mg PO per written order on downtime.
--- OUTSIDE RECORDS SUMMARY | 2022-07-25 06:13 | XMS_ITS | Continuity of Care Document ---
:1985 Author Organization [facility] Address [address] [place] [address]- Care Team Providers Name Role Phone Aniceto RAMOS, Joy Box Primary Care Physician [place] [facility] [place] 12/23/21 [facility] [address], [place] [address] Encounter Diagnosis Acute otitis media, bilateral (Discharge Diagnosis) - 12/16/21 Attending Physician: Hans Meyers DO Allergies, Adverse Reactions, Alerts No Known Allergies Medications buPROPion 100 mg/12 hours (SR) oral tablet, extended release 1 tablet = 100 mg, By Mouth, Daily, # 60 tablet, 3 Refills, Maintenance, 02/28/16 8:48:34, ER Tablet Start Date: 02/28/16 Status: OrderedclonazePAM 0.5 mg oral tablet 1 tablet = 0.5 mg, By Mouth, 2 times a day, Take only as needed NO FURTHER REFILLS UNTIL OFFICE VISTLAST WARNING, # 30 tablet, 0 Refills, Maintenance, 01/10/17 13:30:19 Start Date: 01/10/17 Stop Date: 01/25/17 Status: OrderedcloNIDine 0.1 mg oral tablet TAKE 1/2- 1 TABLET 3 TIMES DAILY. NEEDED FOR ANXIETY., 11/17/13 0:00:00 Start Date: 11/17/13 Status: OrderedDuloxetine By Mouth, 0 Refills, Maintenance Start Date: 01/09/13 Status: Orderedgabapentin 300 mg oral capsule TAKE 1 CAPSULE THREE TIMES DAILY., 10/06/14 0:00:00 Start Date: 10/06/14 Status: Orderedgabapentin 400 mg oral capsule 400 mg, 1, capsule, By Mouth, 3 times a day, NO FURTHER REFILLS UNTIL OFFICE VISIT, # 90 capsule, Refills 0, Tot. Refills 0, Maintenance, 02/04/17 10:31:00, Route to Pharmacy Electronically, [id number], [facility]/pharmacy #[id number] Start Date: 02/04/17 Stop Date: 03/06/17 Status: OrderedOrtho Micronor 0.35 mg oral tablet 1 tablet = 0.35 mg, By Mouth, Daily, # 28 tablet, 3 Refills, Maintenance, Tablet Start Date: 03/21/13 Status: Orderedoxycodone 5 mg oral tablet 1 tablet = 5 mg, By Mouth, Every 6 hours, PRN for pain, # 24 tablet, 0 Refills, Maintenance, Tablet Start Date: 03/21/13 Status: OrderedPrenatal Multivitamins By Mouth, Daily, 0 Refills, Maintenance Start Date: 01/09/13 Status: Orderedsertraline 100 mg oral tablet 2 tablet = 200 mg, By Mouth, Daily, THIS IS THE MAX DOSE THAT WILL BE PRESCRIBDED BY DR HARDY, NO FURTHER REFILL UNITL OFFICE VIST LAST WARNING, # 30 tablet, 1 Refills, Maintenance, 03/08/17 16:00:00, Tablet Start Date: 03/08/17 Stop Date: 04/07/17 Status: Ordered Problem List Condition Effective Dates Status Health Status Informant Acute pharyngitis(Confirmed) Active Alcohol abuse(Confirmed) Active Anxiety(Confirmed) Active Esophageal reflux(Confirmed) Active Major depression(Confirmed) Active OCD (obsessive compulsive Active disorder)(Confirmed) Panic disorder with Active agoraphobia(Confirmed) (Confirmed) Active Short cervix affecting Active (Confirmed) Social phobia(Confirmed) Active Threatened Premature Labor(Confirmed) Active Diagnosis Diagnosis Type Effective Dates Health Status Clinical In formant Service Acute otitis Discharge 12/16/21 media, bilateral Diagnosis Vital Signs Most recent to oldest [Reference Range]: 1 Height 152.40 cm (12/16/21 12:32 PM) Oxygen Saturation [94-100 %] 100 % (12/16/21 12:32 PM) Pulse Rate [55-90 bpm] 68 bpm (12/16/21 12:32 PM) Blood Pressure [90-138/55-84 mm Hg] 90/65 mm Hg (12/16/21 12:32 PM) Respiratory Rate [16-30 br/min] 18 br/min (12/16/21 12:32 PM) Temperature [96.8-100.4 DegF] 98.0 DegF (12/16/21 12:32 PM) Mode of Delivery (Oxygen) Room air (12/16/21 12:32 PM) Blood pressure sites Arm, right (12/16/21 12:32 PM) Temperature Route Temporal (12/16/21 12:32 PM) Social History Social History Type Response Smoking Status Current every day smoker; To bacco user in household: No entered on: 05/18/15 Sex
--- OUTSIDE RECORDS SUMMARY | 2022-07-25 06:13 | XMS_ITS | Continuity of Care Document ---
:1985 Author Organization [facility] Address [address] [place] [address]- Care Team Providers Name Role Phone Not on Staff, PCP Primary Care Physician Unavailable Encounter [facility] [place] Date(s): 12/08/21 - 12/08/[address] [address]- Discharge Disposition: A-D/C Home Attending Physician: Margarito Alfaro MD Admitting Physician: Margarito Alfaro MD Referring Physician: Not on Staff, Referring MD Allergies, Adverse Reactions, Alerts No Known Allergies [...] Maintenance, 02/04/17 10:31:00, Route to Pharmacy Electronically, [id number], [facility]/pharmacy #[id number] Start Date: 02/04/17 Stop Date: 03/06/17 [...] Social phobia(Confirmed) Active Threatened Premature Labor(Confirmed) Active Results Radiology Reports Exam Date Time Procedure Performing Provider Status 12/08/21 4:45 PM Chest 2 Views Frontal and Lat Goldie Santana; [place] (Verified) Notes:(Chest 2 Views Frontal and Lat) Reason For Exam: Chest Pain;Other:RESULT: Chest 2 Views Frontal and Lat Chest 2 Views Frontal and Lat HX OF PRESENT ILLNESS: since yesterday has had 3 episodes of severe midsternal cp, feels like a cylinder going straight through to back with sob, dizziness, cold sweats, sob. Episodes last 15 mins and resolve spontaneously. Started Cymbalta 3 days ago; Reason: Chest Pain COMPARISON: 07/01/2008 FINDINGS: LINES AND TUBES: None. LUNGS AND PLEURA: Clear lungs. Normal pulmonary vascularity. No pleural effusion. No pneumothorax. HEART, MEDIASTINUM AND MAGDA: Heart is normal in size. Normal mediastinal and hilar contour. BONES AND SOFT TISSUES: No acute abnormality. IMPRESSION: No evidence of acute abnormality. WSN: [id number] Ordering Physician: Leoncio Dillon Dictated By: Charles Sage MD Dictated Date/Time: 12/08/21 4:47 pm Reviewed By: Charles Sage MD Signed By: Charles Sage MD Signed Date/Time: 12/08/21 4:47 pm Transcribed By: LOVE Transcribed Date/Time: 12/08/21 4:46 pm Vital Signs Most recent to oldest 1 2 3 [Reference Range]: Oxygen Saturation [94-100 %] 100 % 99 % 100 % (12/08/21 10:30 PM) (12/08/21 8:42 PM) (12/08/21 6: 38 PM) Pulse Rate [55-90 bpm] 84 bpm 90 bpm 79 bpm (12/08/21 10:30 PM) (12/08/21 8:42 PM) (12/08/21 6: 38 PM) Blood Pressure [90-138/55-84 120/79 mm Hg 123/82 mm Hg 120 /83 mm Hg mm Hg] (12/08/21 10:30 PM) (12/08/21 8:42 PM) (12/08/21 6: 38 PM) Respiratory Rate [16-30 23 br/min 17 br/min 16 br/mi n br/min] (12/08/21 10:30 PM) (12/08/21 8:42 PM) (12/08/21 6: 38 PM) Temperature [96.8-100.4 DegF] 98.3 DegF 98.7 DegF (12/08/21 6:38 PM) (12/08/21 4:35 PM) Mode of Delivery (Oxygen) Room air Room air Room a ir (12/08/21 10:30 PM) (12/08/21 8:42 PM) (12/08/21 6: 38 PM) Blood pressure sites Arm, left Arm, left Arm, right (12/08/21 10:30 PM) (12/08/21 8:42 PM) (12/08/21 6: 38 PM) Temperature Route Oral Oral (12/08/21 6:38 PM) (12/08/21 4:35 PM) Social History Social History Type Response Smoking Status Current every day smoker; To bacco user in household: No entered on: 05/18/15 Sex
--- OUTSIDE RECORDS SUMMARY | 2022-07-25 06:13 | XMS_ITS | Continuity of Care Document ---
:1985 Author Organization [facility] Address [address] [place] [address]- Care Team Providers Name Role Phone Aniceto RAMOS, Joy Box Primary Care Physician [place] [facility] [place] 12/16/21 - 01/15/22 [facility] [address] [place] [address]- Attending Physician: Dao Raza Admitting Physician: Dao Raza Referring Physician: AdmtrDao Allergies, Adverse Reactions, Alerts No Known Allergies Medications buPROPion 100 mg/12 hours (SR) oral tablet, extended release 1 tablet = 100 mg, By Mouth, Daily, # 60 tablet, 3 Refills, Maintenance, 02/28/16 8:48:34, ER Tablet Start Date: 02/28/16 Status: Orderedcefdinir 300 mg oral capsule 1 capsule = 300 mg, By Mouth, Every 12 hours, for 10 days, # 20 capsule, 0 Refills, Acute 01/19/22 11:37:00 EDT, 01/09/22 11:37:00 EDT, Capsule, [facility]/pharmacy #[id number], Partial fill upon patient request ifthe prescription is for a schedule II opioid drug... Start Date: 01/09/22 Stop Date: 01/19/22 Status: OrderedclonazePAM 0.5 mg oral tablet 1 [...] ANXIETY., 11/17/13 0:00:00 Start Date: 11/17/13 Status: OrderedDiflucan 150 mg oral tablet See Instructions, 1 tablet By Mouth as needed for yeast infection, then repeat in 5 days if symptomspersist, # 2 tablet, 0 Refills, Maintenance, 01/09/22 11:37:00 EDT, Tablet, [facility]/pharmacy #[id number], Partial fill upon patient request if the prescription... Start Date: 01/09/22 Status: OrderedDuloxetine By Mouth, 0 Refills, Maintenance [...] Maintenance, 02/04/17 10:31:00, Route to Pharmacy Electronically, [id number], [facility]/pharmacy #[id number] Start Date: 02/04/17 Stop Date: 03/06/17 Status: [...] Social phobia(Confirmed) Active Threatened Premature Labor(Confirmed) Active Social History Social History Type Response Smoking Status Current every day smoker; To bacco user in household: No entered on: 05/18/15 Sex
--- OUTSIDE RECORDS SUMMARY | 2022-07-25 06:13 | XMS_ITS | Continuity of Care Document ---
:1985 Author Organization [facility] Address [address] [place] [address]- Care Team Providers Name Role Phone Aniceto RAMOS, Joy Box Primary Care Physician [place] [facility] [id number] Date(s): 01/09/22 - 01/16/22 [facility] [address] [place] [address]- Encounter Diagnosis Otitis media, recurrent (Discharge Diagnosis) - 01/09/22 Attending Physician: Vimal Balderas Allergies, Adverse Reactions, Alerts No Known Allergies [...] 01/19/22 11:37:00 EDT, 01/09/22 11:37:00 EDT, Capsule, [facility]/pharmacy #[id number], Partial fill upon patient request ifthe prescription [...] 0 Refills, Maintenance, 01/09/22 11:37:00 EDT, Tablet, [facility]/pharmacy #[id number], Partial fill upon patient request if the [...] Maintenance, 02/04/17 10:31:00, Route to Pharmacy Electronically, [id number], [facility]/pharmacy #[id number] Start Date: 02/04/17 Stop Date: 03/06/17 Status: [...] Dates Health Status Clinical In formant Service Otitis media, Discharge 01/09/22 recurrent Diagnosis Social History Social History Type Response Smoking Status Current every day smoker; To bacco user in household: No entered on: 05/18/15 Sex
--- OUTSIDE RECORDS SUMMARY | 2022-07-25 06:13 | XMS_ITS | Continuity of Care Document ---
:1985 Author Organization [facility] Address [address] [place] [address]- Care Team Providers Name Role Phone Joy Moreland MD Primary Care Physician [place] [facility] [id number] Date(s): 05/14/22 - 05/21/22 [facility] [address] [place], [place] [address] Attending Physician: Hans Meyers DO Referring Physician: Joy Moreland MD Allergies, Adverse Reactions, Alerts No Known [...] 11/17/13 Status: OrderedDiflucan 150 mg oral tablet 1 tablet = 150 mg, By Mouth, Once, # 2 tablet, 0 Refills, Soft Stop, 05/15/22 17:53:00 EDT, Tablet, [facility]/pharmacy #[id number], Partial fill upon patient request if the prescription is for a schedule II opioiddrug., 152.4, cm, 05/14/22 10:06:00 EDT, Height Start Date: 05/15/22 Status: OrderedDiflucan 150 mg oral tablet See Instructions, 1 tablet By Mouth as needed for yeast infection, then repeat in 5 days if symptomspersist, # 2 tablet, 0 Refills, Maintenance, 01/09/22 11:37:00 EDT, Tablet, [facility]/pharmacy #[id number], Partial fill upon patient request if the prescription... Start Date: 01/09/22 Status: Ordereddoxycycline hyclate 100 mg oral capsule 1 capsule = 100 mg, By Mouth, 2 times a day, for 10 days, # 20 capsule, 0 Refills, Acute 05/24/22 10:34:00 EDT, 05/14/22 10:34:00 EDT, [id number], Partial fill upon patient request if the prescription is for a schedule II opioid drug., 152.4,... Start Date: 05/14/22 Stop Date: 05/24/22 Status: Ordereddoxycycline monohydrate 100 mg oral tablet 1 tablet = 100 mg, By Mouth, 2 times a day, for 10 days, # 20 tablet, 0 Refills, Acute 05/24/22 11:54:00 EDT, 05/14/22 11:54:00 EDT, Tablet, [facility]/pharmacy #[id number], Partial fill upon patient request if theprescription is for a schedule II opioid drug., 1... Start Date: 05/14/22 Stop Date: 05/24/22 Status: OrderedDuloxetine By Mouth, 0 Refills, Maintenance [...] Maintenance, 02/04/17 10:31:00, Route to Pharmacy Electronically, [id number], [facility]/pharmacy #[id number] Start Date: 02/04/17 Stop Date: 03/06/17 [...] Start Date: 03/08/17 Stop Date: 04/07/17 Status: OrderedZyrTEC 10 mg oral tablet 1 tablet = 10 mg, By Mouth, 2 times a day, PRN Itch, # 30 tablet, 0 Refills, Maintenance, 05/14/22 10:36:00 EDT, [facility]/pharmacy #[id number], Partial fill upon patient request if the prescription is for a schedule II opioid drug., 152.4, cm, 05/14/22 10:06:00... Start Date: 05/14/22 Status: Ordered Problem List Condition Effective Dates Status Health Status Informant Acute pharyngitis(Confirmed) Active Alcohol abuse(Confirmed) Active Anxiety(Confirmed) Active Esophageal reflux(Confirmed) Active Major depression(Confirmed) Active OCD (obsessive compulsive Active disorder)(Confirmed) Panic disorder with Active agoraphobia(Confirmed) (Confirmed) Active Short cervix affecting Active (Confirmed) Social phobia(Confirmed) Active Threatened Premature Labor(Confirmed) Active Vital Signs Most recent to oldest [Reference Range]: 1 Height 152.40 cm (05/14/22 10:06 AM) Oxygen Saturation [94-100 %] 99 % (05/14/22 10:06 AM) Pulse Rate [55-90 bpm] 80 bpm (05/14/22 10:06 AM) Blood Pressure [90-138/55-84 mm Hg] 109/65 mm Hg (05/14/22 10:06 AM) Respiratory Rate [16-30 br/min] 20 br/min (05/14/22 10:06 AM) Temperature [96.8-100.4 DegF] 98.1 DegF (05/14/22 10:06 AM) Mode of Delivery (Oxygen) Room air (05/14/22 10:06 AM) Blood pressure sites Arm, left (05/14/22 10:06 AM) Temperature Route Temporal (05/14/22 10:06 AM) Social History Social History Type Response Smoking Status Current every day smoker; To bacco user in household: No entered on: 05/18/15 Sex Care Team PersonnelName: Aniceto RAMOS , Joy Box Address: [address] [place] [address]
--- OUTSIDE RECORDS SUMMARY | 2022-07-25 06:13 | XMS_ITS | Continuity of Care Document ---
:1985 Author Organization [facility] Address [address] [place] [address]- Care Team Providers Name Role Phone Aniceto RAMOS, Joy Box Primary Care Physician [place] [facility] [place] [id number] Date(s): 01/09/22 - 02/08/22 [facility] [address] [place] [address]- Attending Physician: Dao Raza Admitting Physician: Dao Raza Referring Physician: Dao Raza Allergies, Adverse Reactions, Alerts No Known Allergies [...] 0 Refills, Maintenance, 01/09/22 11:37:00 EDT, Tablet, [id number], Partial fill upon patient request if the [...] Maintenance, 02/04/17 10:31:00, Route to Pharmacy Electronically, [id number], [facility]/pharmacy #[id number] Start Date: 02/04/17 Stop Date: 03/06/17 [...]
--- OUTSIDE RECORDS SUMMARY | 2022-07-25 06:13 | XMS_ITS | Continuity of Care Document ---
:1985 Author Organization [facility] Address [address] [place] [address]- Care Team Providers Name Role Phone Joy Moreland MD Primary Care Physician [place] [facility] [place] [id number] Date(s): 05/14/22 - 06/13/22 [facility] [address] [place], [place] [address] Attending Physician: Dao Raza Admitting Physician: Dao [...] Soft Stop, 05/15/22 17:53:00 EDT, Tablet, [id number], Partial fill upon patient request if the prescription is for a schedule II opioiddrug., 152.4, cm, 05/14/22 10:06:00 EDT, Height Start Date: 05/15/22 Status: OrderedDiflucan 150 mg oral tablet See Instructions, 1 tablet By Mouth as needed for yeast infection, then repeat in 5 days if symptomspersist, # 2 tablet, 0 Refills, Maintenance, 01/09/22 11:37:00 EDT, Tablet, [facility]/pharmacy #[id number], Partial fill upon patient request if the [...] Maintenance, 02/04/17 10:31:00, Route to Pharmacy Electronically, [id number], [facility]/pharmacy #[id number] Start Date: 02/04/17 Stop Date: 03/06/17 Status: [...] tablet, 0 Refills, Maintenance, 05/14/22 10:36:00 EDT, [facility]/pharmacy #[id number], Partial fill upon patient request if the prescription is for a schedule II opioid drug., 152.4, cm, 05/14/22 10:06:00... Start Date: 05/14/22 Status: Ordered Problem List Condition Confirmation Course Effective Dates Status Health Stat us Informant Acute pharyngitis Confirmed Active Alcohol abuse Confirmed Active Anxiety Confirmed Active Esophageal reflux Confirmed Active Major depression Confirmed Active OCD (obsessive Confirmed Active compulsive disorder) Panic disorder with Confirmed Active agoraphobia Confirmed Active Short cervix Confirmed Active affecting Social phobia Confirmed Active Threatened Confirmed Active Premature Labor Social History Social History Type Response Smoking Status Current every day smoker; To bacco user in household: No entered on: 05/18/15 Sex Patient Care team information PersonnelName: Aniceto RAMOS , Joy Box Address: Address: [address] [place] [id number]
[2022-07-25 06:20] LABS: MANUAL DIFF FLAG NO
[2022-07-25 06:34] LABS: Basophils Percent Auto 0.4 % (0-2); Eosinophils Absolute Auto 0.1 X10*3/uL (0.0-0.4); Eosinophils Percent Auto 1.4 % (0-4); Hematocrit 38.5 % (37.0-47.0); Hemoglobin 13.1 g/dl (12.0-16.0); Imm Gran Abs Auto 0.03 X10*3/uL (0.00-0.03); Imm Gran Pct Auto 0.4 % (0.0-0.4); Lymphocytes Absolute Auto 3.7 X10*3/uL (1.2-4.9); Lymphocytes Percent Auto 45.8 % (20-40); Mean Corpuscular Hemoglobin 30.5 pg (27.0-33.0); Mean Corpuscular Volume 89.5 fL (80.0-98.0); Mean Platelet Volume 9.6 fL (9.4-12.3); Monocytes Absolute Auto 0.3 X10*3/uL (0.1-1.2); Monocytes Percent Auto 3.5 % (2-11); Neutrophils Absolute Auto 3.9 x10*3/uL (2.0-8.3); Neutrophils Percent Auto 48.5 % (45-73); Platelet Count 387 X10*3/uL (160-400); Red Cell Distribution Width 12.9 % (11.0-16.0)
[2022-07-25] MEDS: Midodrine HCl 10 MG TABLET PO (07:10)
--- NOTE | 2022-07-25 07:50 | PC.NURSE ---
norepi drip paused at this time, BP improved.
[2022-07-25] MEDS: 0.9 % Sodium Chloride 1,000 ML 999 ML IV (07:54)
--- NOTE | 2022-07-25 08:10 | PC.NURSE ---
bp 91/49, norepi restarted
--- NOTE | 2022-07-25 08:36 | ED.OVERDOSE ---
HPI - Overdose General Source: patient Mode of arrival: EMS Limitations: no limitations History of Present Illness HPI Narrative: Patient denies any significant psychiatric problems in the past was feeling tired wanted to take medication to sleep so she took about 15 tablets of Tylenol 350 mg since midnight and about 10 tablets of ibuprofen 200 mg and clonidine 0.5 mg 5 tablets all of them she took around midnight patient is denying any significant depression with suicidal feeling says that she took the medication as she was having headache and she cannot sleep for someone called EMS for wellness check as she stated she wanted to be with her mother permanently whose is diseased patient is lethargic on arrival but arousable patient also had some alcohol Related Data Previous Rx's Medication Instructions Recorded lamotrigine 25 mg tablet (Lamictal) See Rx Instructions .Route 01/31/22 .COMPLEX 28 days #42 tabs buspirone 15 mg tablet 15 mg PO BID 30 days #60 tabs 02/06/22 clonazepam 0.5 mg tablet 0.5 mg PO TID PRN anxiety #90 tabs 02/06/22 fluoxetine 20 mg capsule 20 mg PO DAILY 30 days #30 caps 02/07/22 clonidine HCl 0.1 mg tablet 0.1 mg PO BID PRN anxiety 30 days 02/12/22 #60 tabs lamotrigine 100 mg tablet 100 mg PO DAILY #30 tabs 02/12/22 (Lamictal) Allergies Allergy/AdvReac Type Severity Reaction Status Date / Time No Known Allergies Allergy Verified 10/24/20 08:48 Review of Systems Review of Systems: Yes all other systems are reviewed and are negative [facility] Past Medical History Medical History History of anemia History of chest pain Surgical History History of appendectomy Social History Social History Household Members: Children Patient Tobacco Use Status: Current everyday Tobacco user Tobacco use type: Cigarette Years Smoked: since age 22 Advance Directives: No Advance Directives Information Provided: No Physical Exam Vital Signs: Vital Signs: Last Vital Signs Temp 98.3 F 07/25/22 08:13 Pulse 63 07/25/22 13:02 Resp 17 07/25/22 13:02 BP 109/66 07/25/22 13:02 Pulse Ox 97 07/25/22 13:02 O2 Del Method 07/25/22 13:02 Appearance: Alert. Oriented X3. No acute distress. Lethargic but arousable Eyes: No Nystagmus, pupils dilated ENT: Pharynx normal. Oral Mucosa moist Neck: Normal inspection. Neck supple. CVS: Normal heart rate and rhythm. Pulses normal. Respiratory: No respiratory distress. Equal air entry bilateral, no wheezing/rales/rhonchi Abdomen: Soft and nontender. Bowel sounds are present, no mass palpable, no CVA tenderness Skin: Skin warm and dry. Normal skin color. Normal skin turgor. Extremities: No lower extremity edema. No calf tenderness Neuro: Oriented X 3. No motor deficit. No sensory deficit.No cerebellar signs , cranial nerves II-XII intact Medications Administered Discontinued Medications Generic Name Dose Route Start Last Admin Trade Name Freq PRN Reason Stop Dose Admin Norepinephrine Bitartrate 8 mg in 250 mls @ 0 mls/hr 07/25/22 07:15 07/25/22 09:40 Levophed IVCONT 0 mcg/kg/min .Q0M EDMUND 0 mls/hr Titration Protocol Per Protocol Sodium Chloride 1,000 mls @ 999 mls/hr 07/25/22 07:30 07/25/22 10:55 Ns IV 07/25/22 08:30 Infused .Q1H1M EDMUND Infusion Naloxone HCl 5 mg/ Dextrose 100 mls @ 40 mls/hr 07/25/22 09:45 07/25/22 12:50 IV 2 mg/hr .Q2H30M EDMUND 40 mls/hr Administration 2 MG/HR Lactated Ringer's 1,000 mls @ 150 mls/hr 07/25/22 10:00 07/25/22 10:27 Lr IVCONT 150 mls/hr .Q6H40M EDMUND Administration Midodrine 10 mg 07/25/22 04:27 07/25/22 07:10 Midodrine Hcl 10 Mg Tablet PO 07/25/22 04:28 10 mg ONCE ONE Administration Naloxone HCl 0.4 mg 07/25/22 09:09 07/25/22 09:13 Naloxone Hcl 0.4 Mg/Ml Vial IVPUSH 07/25/22 09:10 0.4 mg STAT STA Administration Naloxone HCl 4 mg 07/25/22 09:09 07/25/22 09:23 Naloxone Hcl Nasal 4 Mg Elverta NOSTRILALT 07/25/22 09:10 Not Given ONCE ONE Naloxone HCl 10 mg 07/25/22 09:38 07/25/22 10:03 Naloxone Hcl 2 Mg/2 Ml Syringe IVPUSH 07/25/22 09:39 10 mg ONCE ONE Administration Ondansetron HCl 4 mg 07/25/22 09:43 07/25/22 10:01 Ondansetron Hcl 4 Mg/2 Ml Vial IVPUSH 07/25/22 09:44 4 mg ONCE ONE Administration MDM - Overdose MDM Narrative Medical decision making narrative: Patient 80 which level 223 salicylate negative Tylenol level <1 patient blood pressure started dropping started on Levophed drip at very low dose blood pressure maintain case discussed with poison control advised to continue Levophed drip blood pressure stabilized will admit patient to ICU Lab Data Attestation: I reviewed the patient's lab results. Result diagrams: 07/25/22 02:55 07/25/22 09:53 Labs: Lab Results 07/25/22 07/25/22 07/25/22 Range/Units 02:55 02:55 04:34 WBC 8.0 (4.8-10.8) X10*3/uL RBC 4.30 (4.20-5.50) X10*6/uL Hgb 13.1 (12.0-16.0) g/dl Hct 38.5 (37.0-47.0) % MCV 89.5 (80.0-98.0) fL MCH 30.5 (27.0-33.0) pg MCHC 34.0 (31.0-35.0) g/dl RDW 12.9 (11.0-16.0) % Plt Count 387 (160-400) X10*3/uL MPV 9.6 (9.4-12.3) fL Immature Gran % (Auto) 0.4 (0.0-0.4) % Neut % (Auto) 48.5 (45-73) % Lymph % (Auto) 45.8 H (20-40) % [place] % (Auto) 3.5 (2-11) % Eos % (Auto) 1.4 (0-4) % Baso % (Auto) 0.4 (0-2) % Lymph # (Auto) 3.7 (1.2-4.9) X10*3/uL [place] # (Auto) 0.3 (0.1-1.2) X10*3/uL Eos # (Auto) 0.1 (0.0-0.4) X10*3/uL Baso # (Auto) 0.0 (0.0-0.2) X10*3/uL Abs Immat Gran (auto) 0.03 (0.00-0.03) X10*3/uL Absolute Neuts (auto) 3.9 (2.0-8.3) x10*3/uL Absolute Nucleated RBC 0.000 (0.0-0.012) X10*3/uL Nucleated RBC % (auto) 0.0 (0.0-0.2) /100WBC VBG pH VBG pCO2 VBG pO2 VBG HCO3 VBG O2 Saturation VBG Base Excess Sodium 142 (135-145) mmol/L Potassium 4.2 (3.3-5.1) mmol/L Chloride 106 (96-108) mmol/L Carbon Dioxide 25 (22-29) mmol/L Anion Gap 15 (12-20) BUN 12 (9-16) mg/dL Creatinine 0.77 (0.5-1.4) mg/dL Estim Creat Clear Calc TNP Estimated GFR > 60 Random Glucose 91 (60-115) mg/dL Lactic Acid 1.0 (0.5-2.0) mmol/L Calcium 9.1 (8.4-10.2) mg/dL Magnesium 1.9 (1.6-2.6) mg/dL Total Bilirubin 0.3 (0.0-1.0) mg/dL AST 20 (5-31) U/L ALT 57 H (0-31) U/L Alkaline Phosphatase 84 (39-117) U/L Total Protein 6.7 (6.5-8.0) g/dL Albumin 4.1 (3.5-5.0) g/dL Salicylates < 5.0 L (15-30) mg/dL Acetaminophen < 1 (<30) mcg/mL Ethyl Alcohol 223 mg/dL COVID-19 ([facility]U) (Negative) COVID-19 Clin Com 07/25/22 07/25/22 07/25/22 Range/Units 09:53 09:54 09:59 WBC (4.8-10.8) X10*3/uL RBC (4.20-5.50) X10*6/uL Hgb (12.0-16.0) g/dl Hct (37.0-47.0) % MCV (80.0-98.0) fL MCH (27.0-33.0) pg MCHC (31.0-35.0) g/dl RDW (11.0-16.0) % Plt Count (160-400) X10*3/uL MPV (9.4-12.3) fL Immature Gran % (Auto) (0.0-0.4) % Neut % (Auto) (45-73) % Lymph % (Auto) (20-40) % [place] % (Auto) (2-11) % Eos % (Auto) (0-4) % Baso % (Auto) (0-2) % Lymph # (Auto) (1.2-4.9) X10*3/uL [place] # (Auto) (0.1-1.2) X10*3/uL Eos # (Auto) (0.0-0.4) X10*3/uL Baso # (Auto) (0.0-0.2) X10*3/uL Abs Immat Gran (auto) (0.00-0.03) X10*3/uL Absolute Neuts (auto) (2.0-8.3) x10*3/uL Absolute Nucleated RBC (0.0-0.012) X10*3/uL Nucleated RBC % (auto) (0.0-0.2) /100WBC VBG pH Cancelled 7.35 VBG pCO2 Cancelled 34 VBG pO2 Cancelled 58 VBG HCO3 Cancelled 19 L VBG O2 Saturation Cancelled 84.0 VBG Base Excess Cancelled -4.9 Sodium 141 (135-145) mmol/L Potassium 4.4 (3.3-5.1) mmol/L Chloride 111 H (96-108) mmol/L Carbon Dioxide 21 L (22-29) mmol/L Anion Gap 13 (12-20) BUN 13 (9-16) mg/dL Creatinine 0.72 (0.5-1.4) mg/dL Estim Creat Clear Calc TNP Estimated GFR > 60 Random Glucose 111 (60-115) mg/dL Lactic Acid (0.5-2.0) mmol/L Calcium 8.0 L D (8.4-10.2) mg/dL Magnesium (1.6-2.6) mg/dL Total Bilirubin 0.4 (0.0-1.0) mg/dL AST 17 (5-31) U/L ALT 49 H (0-31) U/L Alkaline Phosphatase 74 (39-117) U/L Total Protein 6.0 L (6.5-8.0) g/dL Albumin 3.7 (3.5-5.0) g/dL Salicylates < 5.0 L (15-30) mg/dL Acetaminophen < 1 (<30) mcg/mL Ethyl Alcohol 99 mg/dL COVID-19 ([facility]U) (Negative) COVID-19 Clin Com 07/25/22 Range/Units 11:56 WBC (4.8-10.8) X10*3/uL RBC (4.20-5.50) X10*6/uL Hgb (12.0-16.0) g/dl Hct (37.0-47.0) % MCV (80.0-98.0) fL MCH (27.0-33.0) pg MCHC (31.0-35.0) g/dl RDW (11.0-16.0) % Plt Count (160-400) X10*3/uL MPV (9.4-12.3) fL Immature Gran % (Auto) (0.0-0.4) % Neut % (Auto) (45-73) % Lymph % (Auto) (20-40) % [place] % (Auto) (2-11) % Eos % (Auto) (0-4) % Baso % (Auto) (0-2) % Lymph # (Auto) (1.2-4.9) X10*3/uL [place] # (Auto) (0.1-1.2) X10*3/uL Eos # (Auto) (0.0-0.4) X10*3/uL Baso # (Auto) (0.0-0.2) X10*3/uL Abs Immat Gran (auto) (0.00-0.03) X10*3/uL Absolute Neuts (auto) (2.0-8.3) x10*3/uL Absolute Nucleated RBC (0.0-0.012) X10*3/uL Nucleated RBC % (auto) (0.0-0.2) /100WBC VBG pH VBG pCO2 VBG pO2 VBG HCO3 VBG O2 Saturation VBG Base Excess Sodium (135-145) mmol/L Potassium (3.3-5.1) mmol/L Chloride (96-108) mmol/L Carbon Dioxide (22-29) mmol/L Anion Gap (12-20) BUN (9-16) mg/dL Creatinine (0.5-1.4) mg/dL Estim Creat Clear Calc Estimated GFR Random Glucose (60-115) mg/dL Lactic Acid (0.5-2.0) mmol/L Calcium (8.4-10.2) mg/dL Magnesium (1.6-2.6) mg/dL Total Bilirubin (0.0-1.0) mg/dL AST (5-31) U/L ALT (0-31) U/L Alkaline Phosphatase (39-117) U/L Total Protein (6.5-8.0) g/dL Albumin (3.5-5.0) g/dL Salicylates (15-30) mg/dL Acetaminophen (<30) mcg/mL Ethyl Alcohol mg/dL COVID-19 (OLU) Negative (Negative) COVID-19 Clin Com See Note ECG Data Attestation: I personally reviewed and interpreted this ECG as follows: Interpretation: Sinus rhythm heart rate 87 beats per minute low-voltage QRS normal intervals no acute ST-T no acute ischemia Discharge Plan Discharge Clinical Impression: Overdose, Depression, Acute hypotension Patient Disposition: Admitted as Observation Interventions: Acute Care Transfer Worksheet (ED) Last Done: 07/25/22 13:06 Discharge Date/Time: 07/25/22 13:07
[2022-07-25 08:39] LABS: Anion Gap 15 (12-20); Carbon Dioxide 25 mmol/L (22-29); Chloride 106 mmol/L (96-108); Potassium 4.2 mmol/L (3.3-5.1); Sodium 142 mmol/L (135-145)
[2022-07-25 08:40] LABS: Alanine Aminotransferase 57 U/L (0-31); Albumin Level 4.1 g/dL (3.5-5.0); Aspartate Amino Transferase 20 U/L (5-31); Bilirubin Total 0.3 mg/dL (0.0-1.0); Blood Urea Nitrogen 12 mg/dL (9-16); Calcium 9.1 mg/dL (8.4-10.2); Estimated Glomerular Filt Rate > 60; Glucose Random 91 mg/dL (60-115); Magnesium 1.9 mg/dL (1.6-2.6); Total Protein 6.7 g/dL (6.5-8.0)
[2022-07-25 08:41] LABS: Acetaminophen LAB < 1 mcg/mL (<30); Alkaline Phosphatase 84 U/L (39-117); Ethanol 223 mg/dL; Salicylate < 5.0 mg/dL (15-30)
[2022-07-25] MEDS: Naloxone HCl 0.4 MG/ML VIAL IVPUSH (09:13)
--- NOTE | 2022-07-25 09:30 | PC.NURSE ---
poison controlled called and spoke with this RN, the recommend giving patient a bolus of 10mg naloxone and then starting a drip at 7mg/hour. they also request repeat labs of tylenol, asa, cmp, and vbg.
--- NOTE | 2022-07-25 09:39 | HE.ED.TEMP ---
FORM[facility]LY [facility] Past Medical History Medical History History of anemia History of chest pain Surgical History History of appendectomy Social History Social History Household Members: Children Patient Tobacco Use Status: Current everyday Tobacco user Tobacco use type: Cigarette Years Smoked: since age 22 Advance Directives: No Advance Directives Information Provided: No FT.Exam Exam Narrative Exam Narrative: Last Vital Signs Temp 98.3 F 07/25/22 08:13 Pulse 63 07/25/22 09:38 Resp 16 07/25/22 09:38 BP 141/83 H 07/25/22 09:38 Pulse Ox 98 07/25/22 09:38 O2 Del Method 07/25/22 09:38 Medications Administered Generic Name Dose Route Start Last Admin Trade Name Freq PRN Reason Stop Dose Admin Norepinephrine Bitartrate 8 mg in 250 mls @ 0 mls/hr 07/25/22 07:15 07/25/22 08:24 Levophed IVCONT 0.07 mcg/kg/min .Q0M EDMUND 9.74 mls/hr Titration Protocol Per Protocol Discontinued Medications Generic Name Dose Route Start Last Admin Trade Name Freq PRN Reason Stop Dose Admin Sodium Chloride 1,000 mls @ 999 mls/hr 07/25/22 07:30 07/25/22 07:54 Ns IV 07/25/22 08:30 999 mls/hr .Q1H1M EDMUND Administration Midodrine 10 mg 07/25/22 04:27 07/25/22 07:10 Midodrine Hcl 10 Mg Tablet PO 07/25/22 04:28 10 mg ONCE ONE Administration Naloxone HCl 0.4 mg 07/25/22 09:09 07/25/22 09:13 Naloxone Hcl 0.4 Mg/Ml Vial IVPUSH 07/25/22 09:10 0.4 mg STAT STA Administration Naloxone HCl 4 mg 07/25/22 09:09 07/25/22 09:23 Naloxone Hcl Nasal 4 Mg Rawlings NOSTRILALT 07/25/22 09:10 Not Given ONCE ONE Medical Decision Making MDM Narrative Medical decision making narrative: Patient signed out to me from Dr. Hickman patient was on a Levophed drip he states that he had talked to the ICU as well as poison Control. We called poison control who recommended Narcan drip I will start with 10 mg IV and started on a drip I will consult ICU for admission. I will stop the Levophed drip. [phone] Laird we again discussed the patient and will admit. Lab Data Result diagrams: 07/25/22 02:55 07/25/22 02:55 Labs: Lab Results 07/25/22 07/25/22 07/25/22 Range/Units 02:55 02:55 04:34 WBC 8.0 (4.8-10.8) X10*3/uL RBC 4.30 (4.20-5.50) X10*6/uL Hgb 13.1 (12.0-16.0) g/dl Hct 38.5 (37.0-47.0) % MCV 89.5 (80.0-98.0) fL MCH 30.5 (27.0-33.0) pg MCHC 34.0 (31.0-35.0) g/dl RDW 12.9 (11.0-16.0) % Plt Count 387 (160-400) X10*3/uL MPV 9.6 (9.4-12.3) fL Immature Gran % (Auto) 0.4 (0.0-0.4) % Neut % (Auto) 48.5 (45-73) % Lymph % (Auto) 45.8 H (20-40) % [place] % (Auto) 3.5 (2-11) % Eos % (Auto) 1.4 (0-4) % Baso % (Auto) 0.4 (0-2) % Lymph # (Auto) 3.7 (1.2-4.9) X10*3/uL [place] # (Auto) 0.3 (0.1-1.2) X10*3/uL Eos # (Auto) 0.1 (0.0-0.4) X10*3/uL Baso # (Auto) 0.0 (0.0-0.2) X10*3/uL Abs Immat Gran (auto) 0.03 (0.00-0.03) X10*3/uL Absolute Neuts (auto) 3.9 (2.0-8.3) x10*3/uL Absolute Nucleated RBC 0.000 (0.0-0.012) X10*3/uL Nucleated RBC % (auto) 0.0 (0.0-0.2) /100WBC Sodium 142 (135-145) mmol/L Potassium 4.2 (3.3-5.1) mmol/L Chloride 106 (96-108) mmol/L Carbon Dioxide 25 (22-29) mmol/L Anion Gap 15 (12-20) BUN 12 (9-16) mg/dL Creatinine 0.77 (0.5-1.4) mg/dL Estim Creat Clear Calc TNP Estimated GFR > 60 Random Glucose 91 (60-115) mg/dL Lactic Acid 1.0 (0.5-2.0) mmol/L Calcium 9.1 (8.4-10.2) mg/dL Magnesium 1.9 (1.6-2.6) mg/dL Total Bilirubin 0.3 (0.0-1.0) mg/dL AST 20 (5-31) U/L ALT 57 H (0-31) U/L Alkaline Phosphatase 84 (39-117) U/L Total Protein 6.7 (6.5-8.0) g/dL Albumin 4.1 (3.5-5.0) g/dL Salicylates < 5.0 L (15-30) mg/dL Acetaminophen < 1 (<30) mcg/mL Ethyl Alcohol 223 mg/dL Discharge Plan Discharge Clinical Impression: Overdose, Depression, Acute hypotension Patient Disposition: Admitted as Observation Prescriptions: No Action lamotrigine [Lamictal] 25 mg tablet See Rx Instructions .ROUTE .COMPLEX 28 Days Qty: 42 0RF Rx Instructions: Take one tab (25mg) for 14 days, then take 2 tabs (50mg) for 14 days. buspirone 15 mg tablet 15 mg PO BID 30 Days Qty: 60 0RF clonazepam 0.5 mg tablet 0.5 mg PO TID PRN (Reason: anxiety) Qty: 90 0RF fluoxetine 20 mg capsule 20 mg PO DAILY 30 Days Qty: 30 0RF lamotrigine [Lamictal] 100 mg tablet 100 mg PO DAILY Qty: 30 0RF clonidine HCl 0.1 mg tablet 0.1 mg PO BID PRN (Reason: anxiety) 30 Days Qty: 60 0RF
[2022-07-25] MEDS: ondansetron HCL 4 MG/2 ML VIAL IVPUSH (10:01)
[2022-07-25 10:03] LABS: Venous Blood Gas Refer to POC result
[2022-07-25] MEDS: Naloxone HCl 2 MG/2 ML SYRINGE 10 MG IVPUSH (10:03)
[2022-07-25 10:04] LABS: VBG Base Excess -4.9 mmol/L; VBG HCO3 19 mmol/L (22-26); VBG pCO2 34 mmHg; VBG pH 7.35 (7.32-7.43); VBG pO2 58 mmHg
[2022-07-25 10:26] LABS: Acetaminophen LAB < 1 mcg/mL (<30); Alanine Aminotransferase 49 U/L (0-31); Albumin Level 3.7 g/dL (3.5-5.0); Alkaline Phosphatase 74 U/L (39-117); Anion Gap 13 (12-20); Aspartate Amino Transferase 17 U/L (5-31); Bilirubin Total 0.4 mg/dL (0.0-1.0); Blood Urea Nitrogen 13 mg/dL (9-16); Carbon Dioxide 21 mmol/L (22-29); Chloride 111 mmol/L (96-108); Estimated Glomerular Filt Rate > 60; Glucose Random 111 mg/dL (60-115); Potassium 4.4 mmol/L (3.3-5.1); Salicylate < 5.0 mg/dL (15-30); Sodium 141 mmol/L (135-145)
[2022-07-25] MEDS: Lactated Ringers 1,000 ML 150 ML IVCONT (10:27)
[2022-07-25] MEDS: Naloxone HCl 5 MG in Dextrose 5 % 95 ML 40 MG IV ×2 (10:50→12:50)
--- NOTE | 2022-07-25 10:50 | PC.NURSE ---
@ 1049AM CALL PLACED TO [facility] PT TX LINE @ DR SOSA REQUEST FOR MEDICAL ICU TRANSFER JG ANSWERS,ASKS WHAT TYPE OF BED WAS NEEDED AND THAT THEY WERE CLOSED TO THOSE TYPES OF TRANSFERS
--- NOTE | 2022-07-25 10:57 | PC.NURSE ---
@1055AM CALL PLACED TO [facility] TRANSFER LINE @ REQUEST OF DR SHEILA PEARL ANSWERS, TAKES PT INFO THEN ASKS TO SPEAK WITH DR SHEILA SOSA TAKES OVER CALL RIGHT AWAY
--- NOTE | 2022-07-25 11:55 | MHC.CARE ---
Please consult the CARE Team for crisis assessment once pt is medically cleared.
--- NOTE | 2022-07-25 12:10 | ECG_ITS ---
Test Reason : OVERDOSE Blood Pressure : / mmHG Vent. Rate : 058 BPM Atrial Rate : 058 BPM P-R Int : 152 ms QRS Dur : 062 ms QT Int : 422 ms P-R-T Axes : -02 038 035 degrees QTc Int : 414 ms Sinus bradycardia Normal ECG When compared with ECG of 25-JUL-2022 02:55, Vent. rate has decreased BY 29 BPM Referred By: Brian Hickman Electronically Signed By:Dariusz Joel
--- NOTE | 2022-07-25 12:13 | PC.NURSE ---
@ 1142AM CALL RECEIVED FROM [facility] OF THE [facility] PT TRANSFER LINE ASKING FOR FACE SHEET TO BE FAXED TO [phone] THAN ASKING TO SPEAK WITH DR SHEILA SOSA TAKES OVER ALL RIGHT AWAY DR SOSA GIVES ROOM ASSIGNMENT INFO TO THIS [facility] ICU BED 309 ACCEPTING IS ANIBAL RN TO RN: [phone]
[2022-07-25 12:14] LABS: Ethanol 99 mg/dL
--- NOTE | 2022-07-25 12:27 | PC.NURSE ---
report given to ICU at [facility]. patient awaiting transport.
[2022-07-25 12:31] LABS: COVID-19 Test Negative (Negative); IDNOW Serial# BCCEAD1C
== END 2022-07-25 13:07 | disposition admitted as inpatient to this hospital (09) ==
PROVIDERS: Internal Medicine Pulmonary Disease; Student in an Organized Health Care Education/Training Program; Emergency Provider Internal Medicine
DX: T39.1X4A Poisoning by 4-Aminophenol derivatives, undetermined, initial encounter (principal); T39.314A Poisoning by propionic acid derivatives, undetermined, initial encounter; T46.5X4A Poisoning by other antihypertensive drugs, undetermined, initial encounter; T51.0X4A Toxic effect of ethanol, undetermined, initial encounter; Y92.9 Unspecified place or not applicable; F33.2 Major depressive disorder, recurrent severe without psychotic features; F10.20 Alcohol dependence, uncomplicated; Y90.7 Blood alcohol level of 200-239 mg/100 ml; I95.9 Hypotension, unspecified; F41.1 Generalized anxiety disorder; F17.210 Nicotine dependence, cigarettes, uncomplicated; Z20.822 Contact with and (suspected) exposure to COVID-19; Z79.899 Other long term (current) drug therapy
CPT/HCPCS: 36415; 80053; 80143; 80179; 82077; 82803; 83605; 83735; 85025; 87635; 93005; 96361; 96365; 96366; 96375; 99285; J2405